=== PATIENT | male | born 1995 | race Hispanic/Latino ===

== ENCOUNTER 2021-11-11 12:05 | Emergency (ER) | payer OTHER ==
[~2021-11-11] VITALS: Ht 170.2 cm; Wt 77.3 kg
[2021-11-11 12:06] VITALS: BP 135/74
[2021-11-11] MEDS ORDERED: DERMABOND TOPICAL SKIN ADHESIVE TOP ONE (12:45)
[2021-11-11] MEDS ORDERED: CEPH500C PO (12:58)
== END 2021-11-11 13:11 | disposition home or self-care (01) ==
LOC: M ED 12:05
DX: S61.213A Laceration without foreign body of left middle finger without damage to nail, initial encounter (principal); W26.0XXA Contact with knife, initial encounter; Y99.0 Civilian activity done for income or pay; Y92.9 Unspecified place or not applicable; Y93.9 Activity, unspecified; F17.200 Nicotine dependence, unspecified, uncomplicated